=== PATIENT | female | born 1995 | race Caucasian/White ===

== ENCOUNTER 2016-12-15 10:42 | Emergency (ER) | payer OTHER ==
[2016-12-15 11:14] LABS: HEMOGLOBIN 14.2 gm/dl (12.3-15.3); RED BLOOD COUNT 4.58 M/UL (4.00-5.10)
[2016-12-15 11:45] LABS: BUN/CREATININE RATIO 14 (0-10)
== END 2016-12-15 16:43 | disposition home or self-care (01) ==
LOC: ER1 10:42
PROVIDERS: Emergency Medicine
DX: R09.1 Pleurisy (principal); E87.6 Hypokalemia; F17.210 Nicotine dependence, cigarettes, uncomplicated
CPT/HCPCS: 36415; 80053; 81001; 82550; 82553; 83874; 84484; 84703; 85025; 87081; 87880; 93005; 99285; J7050; Q9963

== ENCOUNTER 2021-07-14 17:42 | Emergency (ER) | payer OTHER ==
[~2021-07-14 17:42] MED LIST: DELSYM30 MG/5 ML PO; TYLENOL 500 MG500 MG PO; ZOFRAN4 MG PO
[2021-07-14 19:30] LABS: HEMOGLOBIN 14.9 gm/dl (12.3-15.3); RED BLOOD COUNT 4.55 M/UL (4.00-5.10); WHITE BLOOD COUNT 8.6 K/UL (4.5-11.0)
[2021-07-14 19:54] LABS: BUN/CREATININE RATIO 14 (0-10)
[2021-07-14] MEDS ORDERED: ZOFRAN ODT 4 MG4 MG PO (22:10)
[2021-07-14] MEDS ORDERED: LODINE CAP 300300 MG PO (22:10)
== END 2021-07-14 22:15 | disposition home or self-care (01) ==
LOC: ER1 17:42
PROVIDERS: Physician Assistant
DX: R53.83 Other fatigue (principal); M79.10 Myalgia, unspecified site; Z88.0 Allergy status to penicillin; F17.210 Nicotine dependence, cigarettes, uncomplicated
CPT/HCPCS: 80053; 81001; 84703; 85025; 87086; 96374; 99283; J1885

== ENCOUNTER 2022-01-20 15:11 | Emergency (ER) | payer OTHER ==
[~2022-01-20 15:11] MED LIST changes: +LODINE CAP 300300 MG PO; +ZOFRAN ODT 4 MG4 MG PO
[2022-01-20] MEDS ORDERED: CLEOCIN HCL150 MG PO (16:11)
[2022-01-20] MEDS ORDERED: DIFLUCAN150 MG PO (16:19)
== END 2022-01-20 16:27 | disposition home or self-care (01) ==
LOC: ER1 15:11
DX: K02.9 Dental caries, unspecified (principal); K03.81 Cracked tooth; F17.210 Nicotine dependence, cigarettes, uncomplicated; Z88.0 Allergy status to penicillin
CPT/HCPCS: 96372; 99282; J1885